=== PATIENT | female | born 2000 | race Caucasian/White ===

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

== ENCOUNTER → 2023-01-06 12:57 | Outpatient (CLI) | payer OTHER, MEDICAID, SELFPAY ==
--- NOTE | 2023-01-06 13:01 | US_ITS ---
FINAL REPORT CLINICAL HISTORY: Dates Anatomy please use anatomy template FINDINGS: There is a single live intrauterine gestation. Presentation is breech. The cervix is closed and measures 3.8 cm. Placenta is anterior. movement is noted. Cardiac activity is confirmed at 136 beats per minute. Three-vessel cord with satisfactory umbilical cord insertion. Four-chamber heart is noted. brain and ventricles are unremarkable. Chest and diaphragm are unremarkable. ABDOMEN: Both kidneys are unremarkable. Stomach is unremarkable. SPINE: No anomalies identified. Both arms and legs noted. AMNIOTIC FLUID: Borderline for polyhydramnios. MEASUREMENTS: ULTRASOUND AGE: 31 weeks 0 days. GESTATION AGE: 28 weeks 5 days. ESTIMATED WEIGHT: 1647 g GROWTH PERCENTILE: 97% BPD: 7.9 cm consistent with 31 weeks 6 days. OFD: 10.2 cm consistent with 31 weeks 4 days. HC: 28.6 cm consistent with 31 weeks 3 days. AC: 27.6 cm consistent with 31 weeks 5 days. FL: 5.5 cm consistent with 29 weeks 0 days. CEREBELLUM: Not well measured. HUMERUS: 5.1 cm consistent with 30 weeks 0 days. HC/AC: 1.04 CI: 78% FL/BPD: 69% FL/AC: 20% IMPRESSION: Single living IUP with an ultrasound age of 31 weeks 0 days. Amniotic fluid index borderline for polyhydramnios. Recommend continued ultrasound follow-up. Reviewed, Interpreted and Dictated by Merari Son MD Transcribed by Mina Lindo Authenticated and [facility]
== END ==
PROVIDERS: PCP Pediatrics; Visit Provider Obstetrics & Gynecology
DX: Z34.90 Encounter for supervision of normal pregnancy, unspecified, unspecified trimester (principal); Z3A.14 14 weeks gestation of pregnancy
CPT/HCPCS: 76805